=== PATIENT | male | born 1985 | race Caucasian/White ===

== ENCOUNTER 2017-10-27 20:01 | Emergency (ER) | payer BC ==
[~2017-10-27] VITALS: Ht 165.1 cm; Wt 74.8 kg
[2017-10-27] MEDS ORDERED: IBUPROFEN 800 MG (MOTRIN) TAB PO ONE ×2 (20:17→21:30)
[2017-10-27] MEDS ORDERED: CLIN150C17 PO (21:16)
--- NOTE | 2017-10-27 21:16 | ED Cough/URI ---
General Chief Complaint: Fever-Adult/Adol Stated Complaint: FEVER Nursing Triage Note: PT TO ED 4 W/ C/O SORE THROAT, FEVER ONSET THIS AM. REPORTS TAKING THERAFLU ET IBUPROFEN FOR SYMPTOMS, DENIES IMPROVEMENT. REPORTS TEMP HIGH AT "105.8" AT HOME. NO OTHER C/O VOICED Source: patient, spouse Exam Limitations: no limitations History of Present Illness Date Seen by Provider: Oct 27, 2017 Time Seen by Provider: 20:59 Initial Comments The patient present to the ER by private conveyance with his Cyndi and a chief complaint that today he woke up feeling malaise, fevers, sweats and a sore throat. He is having no cough, nausea, vomiting, shortness of breath or chest pain. No significant medical history. Does not see a doctor for anything. Allergies and Home Medications Allergies Coded Allergies: Penicillins (Verified Allergy, Unknown, 10/27/17) Patient Home Medication List Home Medication List Reviewed: Yes Review of Systems Constitutional: chills, diaphoresis, fever, malaise EENTM: throat pain, throat swelling; No ear discharge, No ear pain, No eye pain , No dental problems, No hoarseness, No mouth pain, No nose congestion, No nose pain Respiratory: No cough, No short of breath Cardiovascular: No chest pain, No edema Gastrointestinal: No constipation, No diarrhea, No nausea Genitourinary: No discharge, No dysuria Musculoskeletal: No back pain, No joint pain Past Lpshlna-Jpvpnq-Eupkes Hx Patient Social History Alcohol Use: Occasionally Uses Recreational Drug Use: No Type Used: Smokeless Tobacco Recent Foreign Travel: No Contact w/Someone Who Travel: No Recent Infectious Disease Expo: No Recent Hopitalizations: No Physical Abuse: No Sexual Abuse: No Mistreated: No Fear: No Past Medical History Surgeries: No Respiratory: No Cardiac: No Neurological: No Genitourinary: No Gastrointestinal: No Musculoskeletal: No Endocrine: No HEENT: No Cancer: No Psychosocial: No Nursing Suicide Risk Score: 0 Integumentary: No Blood Disorders: No Physical Exam Vital Signs Vital Signs - First Documented 10/27/17 20:16 Temp 103.3 Pulse 91 Resp 20 B/P (MAP) 115/69 (84) Pulse Ox 95 O2 Delivery Room Air Capillary Refill : Less Than 3 Seconds General Appearance: WD/WN, no apparent distress Eyes: Bilateral Eye Normal Inspection, Bilateral Eye PERRL, Bilateral Eye EOMI HEENT: PERRL/EOMI, normal ENT inspection, pharyngeal erythema, tonsillar exudate Neck: non-tender, full range of motion, supple, normal inspection Respiratory: chest non-tender, lungs clear, normal breath sounds, no respiratory distress, no accessory muscle use Cardiovascular: normal peripheral pulses, regular rate, rhythm, no edema Gastrointestinal: normal bowel sounds, non tender, soft Progress/Results/Core Measures Suspected Sepsis Recent Fever Within 48 Hours: No Infection Criteria Present: None New/Unexplained Altered Menta: No Sepsis Screen: No Definite Risk SIRS Temperature:103.3 Pulse: 91 Respiratory Rate: 20 Blood Pressure 115 /69 Mean: 84 Results/Orders Lab Results Laboratory Tests Test 10/27/17 20:24 Range/Units Group A Streptococcus Screen POSITIVE H NEGATIVE Micro Results Microbiology 10/27/17 Influenza Types A,B Antigen ([facility]) - Final, Complete My Orders Orders - MARYJO REYNA Ibuprofen Tablet (Motrin Tablet) (10/27/17 20:17) Rapid Strep A Screen (10/27/17 20:32) Influenza A And B Antigens (10/27/17 20:32) Vital Signs/I&O 10/27/17 20:16 Temp 103.3 Pulse 91 Resp 20 B/P (MAP) 115/69 (84) Pulse Ox 95 O2 Delivery Room Air Capillary Refill : Less Than 3 Seconds Blood Pressure Mean: 84 Departure Impression Primary Impression: Acute streptococcal pharyngitis Disposition: 01 HOME, SELF-CARE Condition: Stable Departure-Patient Inst. Decision time for Depature: 21:14 Referrals: NO,LOCAL PHYSICIAN (PCP) Primary Care Physician Patient Instructions: Strep Throat (DC) Add. Discharge Instructions: Drink plenty of fluids. Salt water gargles as needed. 1000 mg of Tylenol every 8 hours and/or 800 mg of ibuprofen every 8 hours as needed for pain, chills, fever or bodyaches. Get some rest and do not return to work for 48 hours or at least fever free 24 hours. All discharge instructions reviewed with patient and/ or family. Voiced understanding. Scripts Clindamycin HCl (Clindamycin HCl) 150 Mg Capsule 450 MG PO TID for 7 Days, #63 CAP 0 Refills Prov: MARYJO REYNA 10/27/17 Work/School Note: Work Release Form Date Seen in the Emergency Department: Oct 27, 2017 Return to Work: October 30, 2017 Restrictions: No Restrictions MARYJO REYNA Oct 27, 2017 21:16
[2017-10-27 21:26] VITALS: BP 109/71
[2017-10-27] MEDS ORDERED: CLINDAMYCIN 150 MG (CLEOCIN) CAP PO ONE (21:30)
== END 2017-10-27 21:26 | disposition home or self-care (01) ==
LOC: EDUNIT# 20:01 → ER 20:03
DX: J02.0 Streptococcal pharyngitis (principal); Z88.0 Allergy status to penicillin
CPT/HCPCS: 87430; 87804; 99283